=== PATIENT | female | born 1935 | race Two or more races ===

== ENCOUNTER 2018-07-19 12:14 | Outpatient (CLI) | payer OTHER | END 2018-07-19 14:42 | disposition home or self-care (01) | LOC: TOM 12:14 | DX: J84.112 Idiopathic pulmonary fibrosis (principal) ==

== ENCOUNTER → 2018-08-07 | Outpatient (CLI) | payer OTHER | END | disposition home or self-care (01) | LOC: NUCLEAR 07:47 | DX: I50.22 Chronic systolic (congestive) heart failure (principal); I27.0 Primary pulmonary hypertension ==